=== PATIENT | female | born 1950 ===

== ENCOUNTER 2025-07-22 06:15 | Day surgery (SDC) | payer MEDICARE, OTHER, SELFPAY ==
[2025-07-22] VITALS (8 sets, daily range): BP systolic 115–139; BP diastolic 65–86; BMI 25.1
[2025-07-22] MEDS: NORMOSOL-R/PLASMALYTE-A 1000 IV (14:10)
[2025-07-22] MEDS: MORPHINE SULFATE 1 MG IV (17:17)
== END 2025-07-22 18:32 | disposition home or self-care (01) ==
LOC: SDS 06:15
PROVIDERS: ATTENDING PHYSICIAN Orthopaedic Surgery Hand Surgery
DX: S42.352A Displaced comminuted fracture of shaft of humerus, left arm, initial encounter for closed fracture (principal); W19.XXXA Unspecified fall, initial encounter; Y92.009 Unspecified place in unspecified non-institutional (private) residence as the place of occurrence of the external cause
CPT/HCPCS: 24515; C1713; 73060; 76000